=== PATIENT | male | born 1960 | race Caucasian/White ===

== ENCOUNTER 2019-09-04 21:08 | Emergency (ER) | payer OTHER ==
[~2019-09-04] VITALS: Ht 172.7 cm; Wt 99.8 kg
[2019-09-04 21:10] VITALS: Ht 172.7 cm; Wt 99.8 kg
[2019-09-04 21:22] LABS: PLATELET COUNT 215 x10^3mcL (130-400)
[2019-09-04 21:28] LABS: RED CELL DISTRIBUTION WIDTH 13.2 % (11.5-14.5)
[2019-09-04 21:30] VITALS: BP 190/82
[2019-09-04 21:47] LABS: BAND NEUTROPHIL 3 % (0-10); MONOCYTE 8 % (0-7); SEGMENTED NEUTROPHILS 85 % (37-75)
[2019-09-04 21:50] LABS: rbc morphology (normal/abnorm) NORMAL (NORMAL)
[2019-09-04 21:51] LABS: PLATELET MORPHOLOGY FEW LARGE PLATELET
[2019-09-04 22:00] LABS: UA SPECIFIC GRAVITY >=1.030 (1.005-1.035); microscopic required? YES; urine erythrocyte 3+ (NEGATIVE)
[2019-09-04 22:16] LABS: CARBON DIOXIDE 23.3 mmol/L (21-32); CHLORIDE SERUM 102 mmol/L (98-107); POTASSIUM SERUM 3.7 mmol/L (3.5-5.1); SODIUM SERUM 138 mmol/L (136-145)
[2019-09-04 22:17] LABS: ALBUMIN 3.9 g/dL (3.4-5.0); CREATININE SERUM 1.3 mg/dL (0.7-1.3); GFR1 > 60 mL/min; GLUCOSE SERUM 192 mg/dL (74-106); TOTAL PROTEIN, SERUM 7.7 g/dL (6.4-8.2)
[2019-09-04 22:18] LABS: ALKALINE PHOSPHATASE 93 U/L (46-116); ALT/SGPT 36 U/L (16-63); AST/SGOT 65 U/L (15-37); BILIRUBIN TOTAL 1.5 mg/dL (0.20-1.00); CALCIUM 8.7 mg/dL (8.5-10.1)
[2019-09-04 22:37] LABS: AMPHETAMINE QUAL UR NONE DETECTED (See below)
[2019-09-04 22:50] VITALS: BP 168/75
[2019-09-04 23:46] VITALS: BP 141/65
== END 2019-09-04 23:47 | disposition short-term general hospital (02) ==
LOC: EDBD 21:08 → ED 21:08
PROVIDERS: Emergency Medicine
DX: I62.9 Nontraumatic intracranial hemorrhage, unspecified (principal); I10 Essential (primary) hypertension; D72.829 Elevated white blood cell count, unspecified; R74.8 Abnormal levels of other serum enzymes
CPT/HCPCS: G0480; J1100; J1953; J2060; J2150; J7050